=== PATIENT | female | born 1995 | race Caucasian/White ===

== ENCOUNTER 2019-01-09 12:46 | Emergency (ER) | payer BC ==
[~2019-01-09] VITALS: Ht 154.9 cm; Wt 63.0 kg
[2019-01-09 13:27] LABS: BASOPHILS % (AUTO) 1 % (0-1); EOSINOPHILS # (AUTO) 0.07 x10^3/uL (0-0.4); EOSINOPHILS % (AUTO) 1 % (1-7); LYMPHOCYTES # (AUTO) 1.41 x10^3/uL (1-3.4); LYMPHOCYTES % (AUTO) 15 % (22-44); MD NO; MEAN CORPUSCULAR HEMOGLOBIN 34.9 pg (27.0-34.8); MEAN CORPUSCULAR HGB CONC 34.7 g/dL (32.4-35.8); MEAN CORPUSCULAR VOLUME 100.4 fL (80-100); MEAN PLATELET VOLUME 7.8 fL (7.4-10.4); MONOCYTES % (AUTO) 5 % (2-9); NEUTROPHILS # (AUTO) 7.33 x10^3/uL (1.8-6.8); NEUTROPHILS % (AUTO) 78 % (42-75); PLATELET COUNT 268 x10^3/uL (130-400); RED BLOOD COUNT 3.84 x10^6/uL (3.82-5.3)
[2019-01-09] MEDS ORDERED: ONDANSETRON 2MG/ML, 2ML IVPush ONE (13:30)
[2019-01-09] MEDS ORDERED: SODIUM CHLORIDE FLUSH 10ML SYR IVF ONE (13:30)
[2019-01-09 13:36] LABS: ALBUMIN 4.3 g/dL (3.4-5.0); ANION GAP 4 mmol/L (5-15); CALCIUM 9.1 mg/dL (8.5-10.1); CHLORIDE 108 mmol/L (98-107); CREATININE 0.64 mg/dL (0.55-1.02)
[2019-01-09] MEDS ORDERED: SODIUM CHLORIDE 0.9% 1,000ML IVBOLUS ONE (15:00)
[2019-01-09] MEDS ORDERED: PREN-3 PO (15:01)
[2019-01-09] MEDS ORDERED: ONDANSETRON 2MG/ML, 2ML ONE (15:48)
--- NOTE | 2019-01-09 15:52 | NUR ---
PRESENT W/ N/V X 2 DAYS. REPORTS SHE IS 8 WEEK AND BELIEVES IT IS RELATED. APPEARS NAUSEATED. VSS. DENIES FEVER/MUSCLE ACHES/SORE THROAT
[2019-01-09 15:57] LABS: MICROSCOPIC INDICATED
--- NOTE | 2019-01-09 16:20 | NUR ---
After fluid/zofran. Patient reports nausea completely improved. Taking some po fluids w/out difficulty. Provider made aware Addendum: 01/09/19 at 1702 by [email or web address] VSS. educated on estimated dispo
[2019-01-09 16:22] LABS: CULTURE INDICATED? NO
[2019-01-09 16:58] VITALS: BP 92/57
== END 2019-01-09 17:01 | disposition home or self-care (01) ==
LOC: ED 15:30
DX: O21.1 Hyperemesis gravidarum with metabolic disturbance (principal); Z3A.08 8 weeks gestation of pregnancy
CPT/HCPCS: 36415; 80048; 81001; 82040; 85025; 96361; 96374; 99283; J2405; J7030